=== PATIENT | male | born 1950 | race Caucasian/White ===

== ENCOUNTER 2017-08-23 08:29 | Day surgery (SDC) | payer OTHER ==
[~2017-08-23] VITALS: Ht 172.7 cm; Wt 84.5 kg
[2017-08-23 09:44] VITALS: Ht 172.7 cm; Wt 84.5 kg
[2017-08-23] MEDS ORDERED: LOSA50TA6 PO (09:51)
[2017-08-23] MEDS ORDERED: METF500T4 PO (09:51)
[2017-08-23] MEDS ORDERED: ASPI81TA3 PO (09:51)
[2017-08-23 10:02] VITALS: BP 136/80; PULSE 70; RESP 27
--- NOTE | 2017-08-23 11:38 | OPPN ---
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
[2017-08-23] MEDS ORDERED: MIDAZOLAM 1 MG/ML 2 ML INJ ONE ×3 (11:50)
[2017-08-23] MEDS ORDERED: FENTAnyl 50 MCG/ML VIAL ONE (11:50)
[2017-08-23 11:52] VITALS: BP 101/63; RESP 20
[2017-08-23 11:59] VITALS: BP 134/85; RESP 20
--- NOTE | 2017-08-24 12:07 | GILP ---
DATE OF PROCEDURE: PROCEDURE: Colonoscopy, biopsy, polypectomy and clipping. SURGEON: Dr. Ivy Wolfe. PREOPERATIVE DIAGNOSIS: Screening colonoscopy. POSTOPERATIVE DIAGNOSES: 1. Colonoscopy all the way to the cecum. 2. The patient had 2 flat polyps in the right colon and one of them was removed with the biopsy for ceps and the other one with a snare and electrocautery in pieces. 3. Large transverse colon polyp was removed using the snare and electrocautery. 4. Clipping of the polypectomy site was done to prevent bleeding. 5. The patient was again noted to have a large sigmoid colon polyp and it was not removed at this t anam and it will be removed during next colonoscopy in 3 months. INDICATION FOR THE PROCEDURE: Mr. Nichole Sainz is a 67-year-old male patient who was schedule d for screening colonoscopy. The procedure and possible complications were well explained to the patient, he understood and conse nted to the procedure. Under the influence of fentanyl and Versed, the colonoscope was carefully in troduced in the rectum and under direct vision, it was advanced all the way to the cecum. FINDINGS: The patient had 2 flat polyps in the right colon and one of them was removed using the bi opsy forceps and another one with snare and electrocautery in pieces. The patient was again noted t o have a large transverse colon polyp and it was removed using the snare and electrocautery. Clippi ng of the polypectomy site was done to prevent bleeding. The patient was again noted to have a larg e sigmoid colon polyp and because of the multiple polyps which had been already removed, this one wa s not removed at the present time. He was noted to have internal hemorrhoids. He tolerated the procedure very well and there was no complication from the procedure. At the end o f the procedure, he was awake with stable vital signs and he was discharged home to the care of his family. IMPRESSION: Please see postoperative diagnoses. PLAN: 1. Await histopathology report. 2. Repeat colonoscopy and removal of the sigmoid polyp in 3 months. Dictated By: IVY PAUL/SARA Conf#: [id number] DID#: [id number]
== END 2017-08-23 14:20 | disposition home or self-care (01) ==
LOC: GIL 08:29
PROVIDERS: ATTEND Internal Medicine Gastroenterology
DX: Z12.11 Encounter for screening for malignant neoplasm of colon (principal); D12.5 Benign neoplasm of sigmoid colon; D12.3 Benign neoplasm of transverse colon; E11.9 Type 2 diabetes mellitus without complications; I10 Essential (primary) hypertension
CPT/HCPCS: 45380; 45385; 82962; 88305; J2250; J3010; Z7610

== ENCOUNTER 2017-11-22 07:44 | Day surgery (SDC) | END 2017-11-22 17:10 | disposition home or self-care (01) ==